=== PATIENT | male | born 1935 | race Caucasian/White ===

== ENCOUNTER 2020-05-19 13:30 | Emergency (ER) | payer OTHER ==
--- OUTSIDE RECORDS SUMMARY | 2020-05-19 13:32 | XMS REPORT | Clinical Summary ---
:1935 Author Organization [facility] Address [address] [place] [address] Care Team Providers Name Role Phone Michael Jurado DO Primary Care Provider Allergies Active Allergy Reactions Severity Noted Date Comments Clarithromycin 07/10/2016 Streptomycin Itching 06/29/2016 Medications Medication Sig Dispensed Refills Start Date End Date Status hydroCHLOROthiazide Take 25 mg 0 02/13/2020 Active (HYDRODIURIL) 25 MG by mouth tablet daily. LUMIGAN 0.01 % PUT ONE DROP 12 04/21/2016 02/25/20 D iscontinued ophthalmic drops INTO EACH 20 EYE AT BEDTIME ibuprofen (ADVIL,MOTRIN) Take 200 mg 0 07/06 Discontinued 200 MG tablet by mouth 20 every 6 (six) hours as needed for mild pain or fever. amoxicillin-pot Take 1 0 02/25/20 Disc ontinued clavulanate (AUGMENTIN) tablet by 20 875-125 mg per tablet mouth 2 (two) times a day. 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 Renal failure 07/10/2016 Urinary tract infection 07/10/2016 Abscess, pharyngeal 06/30/2016 Abscess 06/30/2016 Disorder of kidney and ureter 07/03/2012 Essential hypertension 07/03/2012 Hyperlipidemia 07/03/2012 Hyperplasia of prostate 07/03/2012 Encounters Date Type Specialty Care Team Description 02/26/2020 Orders Only Family Medicine Marily Jurado E., DO 02/25/2020 Hospital Encounter Radiology Marily Jurado Pain o f right hip joint E., DO 02/25/2020 Office Visit Family Medicine Marily Jurado Adult gen eral medical exam (Primary Dx); E., DO Essential hyper tension; Pain of right h ip joint; Urinary inconti nence, unspecified type; Memory loss; Mixed hyperlipi demia; Ataxia 02/25/2020 Travel 02/20/2020 Travel after 05/19/2019 Social History Tobacco Use Types Packs/Day Years Used Date Former Smoker Cigarettes 0.5 48 Quit: 12/2016 Smokeless Tobacco: Never Used Alcohol Use Drinks/Week oz/Week Comments No 0 Cans of beer 0.0 Sex Assigned at Date Recorded Not on file Job Start Date Occupation Industry Not on file Not on file Not on file Travel History Travel Start Travel End No recent travel history available. Last Filed Vital Signs Vital Sign Reading Time Taken Comments Blood Pressure 121/70 02/25/2020 9:27 AM CDT Pulse - - Temperature 37.1 C (98.7 F) 02/25/2020 9:27 AM CDT Respiratory Rate - - Oxygen Saturation - - Inhaled Oxygen Concentration - - Weight - - Height 185.4 cm (6' 1") 02/25/2020 9:27 AM CDT Body Mass Index - - Plan of Treatment Health Maintenance Due Date Last Done Comments SHINGLES VACCINES (#1) 11/28/1987 65+ PNEUMOCOCCAL VACCINE (1 of 2 - PCV13) 2002 INFLUENZA VACCINE 06/17/2020 Implants Implanted Type [employer] Device Shelf Model / Identifier Expiration Serial / Date Lot Catheter Uretl 5fr 70cm Opn-End Flx-Tp Std - [id number] Cardiovas cular Left: SOHAM [id number] / Implanted: Qty: 1 on 02/08/2017 by Benedict Diaz MD at [facility] Implants Ureter, UROLOGICAL / [place] Stent Uretl Unvrsa Reprcsd 6fr 26cm Hydrphlc Ctng - [id number] Ur ological Left: SOHAM 12/02/2019 [id number] / Implanted: 02/08/2017 at [facility] (Quantity not on file ) Implants or Sets Ureter, UROLOGICAL / [place] [id number] Procedures Procedure Name Priority Date/Time Associated Diagnosis Comme nts CBC WITH PLATELET AND Routine 02/26/2020 7:46 Re sults for this DIFFERENTIAL AM CDT procedure are i n the results section. COMPREHENSIVE Routine 02/26/2020 7:46 Results fo r this METABOLIC PANEL AM CDT procedure ar e in the results section. LIPID PANEL Routine 02/26/2020 7:46 Results for this AM CDT procedure are i n the results section. XR HIP 2-3 VIEWS RIGHT Routine 02/25/2020 11:21 Pain of right hip Results for this AM CDT joint procedure are i n the results section. ECG 12-LEAD Routine 02/25/2020 10:00 Essential Results for this AM CDT hypertension procedure are i n the results section. after 05/19/2019 Results CBC with platelet and differential (02/26/2020 7:46 AM CDT) WBC 12.5 (H) 3.8 - 10.8 [facility] Thousand/uL [place] RBC 5.27 4.20 - 5.80 [facility] Million/uL [place] HGB 17.7 (H) 13.2 - 17.1 [facility] g/dL [place] HCT 52.2 (H) 38.5 - 50.0 [facility] % [place] MCV 99.1 80.0 - 100.0 [facility] MCH 33.6 (H) 27.0 - 33.0 [facility] pg [place] MCHC 33.9 32.0 - 36.0 [facility] g/dL [place] RDW 12.2 11.0 - 15.0 [facility] % [place] Platelet count 353 140 - 400 [facility] Thousand/uL [place] MPV 10.1 7.5 - 12.5 [facility] Neutrophils, 8,713 (H) 1,500 - [facility] absolute 7,800 [place] cells/uL Lymphocytes, 2,588 850 - 3,900 [facility] absolute cells/uL [place] Monocytes, absolute 1,000 (H) 200 - 950 [facility] cells/uL [place] Eosinophils, 150 15 - 500 [facility] absolute cells/uL [place] Basophils, absolute 50 0 - 200 [facility] cells/uL [place] Neutrophils 69.7 % [facility] [place] Lymphocytes 20.7 % [facility] [place] Monocytes 8.0 % [facility] [place] Eosinophils 1.2 % [facility] [place] Basophils + RC 0.4 % [facility] Comment: [place] NO COLLECTION DATE RECEIVED. WE HAVE USED THE DATE THE SPECIMEN WAS RECEIVED BY THIS LABORATORY THE COLLECTION DATE. IF THIS IS INCORRECT, PLEASE CONTACT CLIENT SERVICES. PHONE NUMBER: [phone] Specimen Narrative Performed At FASTING: YES [facility] Comment Performing Organization Information: Site ID: [id number] Name[facility] Address: [address] [place] [id number] Director: Kaleb Ortiz Performing Organization Address [facility] Phone Number [employer] [place] [address] Lipid panel (02/26/2020 7:46 AM CDT) [facility] Signature Cholesterol, total 156 <200 mg/dL [facility] [place] HDL cholesterol 35 (L) > OR = 40 [facility] mg/dL [place] Triglycerides 169 (H) <150 mg/dL [facility] [place] LDL cholesterol 94 mg/dL (calc) [facility] calculated Comment: [place] Reference range: <100 Desirable range <100 mg/dL for primary prevention; <70 mg/dL for patients with CHD or diabetic patients with > or = 2 CHD risk factors. LDL-C is now calculated using the Waldo-Bhumika calculation, which is a validated novel method providi ng better accuracy than the Friedewald equation in the estimation of LDL-C. Waldo SS et al. AEBBE. 2013;310(19): 4509-7282 (http://education.[employer]/faq/DKL862) Cholesterol/HDL 4.5 <5.0 (calc) [facility] Non-HDL cholesterol 121 <130 mg/dL [facility] Comment: (calc) ONEAL For patients with diabetes plus 1 major ASCVD risk factor, treating to a non-HDL-C goal of <100 mg/dL (LDL-C of <70 mg/dL) is considered a therapeutic option. Specimen Narrative Performed At FASTING: YES [facility] Comment Performing Organization Information: Site ID: [id number] Name: [facility] Address: [address] [place] [id number] Director: Kaleb Ortiz Performing Organization Address [facility]/Zipcode Phone Number [employer] [place] [phone] Comprehensive metabolic panel (02/26/2020 7:46 AM CDT) Glucose 112 (H) 65 - 99 [facility] Comment: mg/dL [place] Fasting reference interval For someone without known diabetes, a glucose value between 100 and 125 mg/dL is consistent with prediabetes and should be confirmed with a follow-up test. BUN 22 7 - 25 mg/dL [facility] [place] Creatinine 1.13 (H) 0.70 - 1.11 [facility] Comment: mg/dL [place] For patients >49 years of age, the reference limit for Creatinine is approximately 13% higher for people identified as -[place]. EGFR Non-Afr. 60 > OR = 60 [facility] [place] mL/min/1.73m [place] 2 EGFR 70 > OR = 60 [facility] [place] mL/min/1.73m [place] 2 BUN/creatinine 19 6 - 22 [facility] ratio (calc) [place] Sodium 141 135 - 146 [facility] mmol/L [place] Potassium 4.2 3.5 - 5.3 [facility] mmol/L [place] Chloride 101 98 - 110 [facility] mmol/L [place] CO2 28 20 - 32 [facility] mmol/L [place] Calcium 9.6 8.6 - 10.3 [facility] mg/dL [place] Protein 6.8 6.1 - 8.1 [facility] g/dL [place] Albumin, S 3.8 3.6 - 5.1 [facility] g/dL [place] Globulin, total 3.0 1.9 - 3.7 [facility] g/dL (calc) [place] Albumin/globulin 1.3 1.0 - 2.5 [facility] ratio (calc) [place] Total bilirubin 0.8 0.2 - 1.2 [facility] mg/dL [place] Alkaline 74 35 - 144 U/L [facility] phosphatase [place] AST 14 10 - 35 U/L [facility] [place] ALT 14 9 - 46 U/L [facility] [place] Specimen Narrative Performed At FASTING: YES [facility] Comment Performing Organization Information: Site ID: [id number] Name: [facility] Address: [address] [place] [address] Director: Kaleb Ortiz Performing Organization Address City/State/Zipcode Phone Number DANNI PIERCE [place] [address] [place] [address] XR Hip 2-3 View Right (02/25/2020 11:21 AM CDT) Specimen Narrative Performed At Examination: XR HIP 2-3 VIEWS RIGHT [facility] Clinical history: M25.551 Pain in right hip, right hip pain after fall Comparison: None Impression: 1. There is no fracture or acute osseous pathology. 2. The joint spaces a relatively well-preserved and sy mmetrical with mild joint space loss reflecting mild to moderate oste oarthritis which is not advanced relative to the patient' s age. [facility]-[id number] Procedure Note Hm Interface, Radiology Results Incoming - 02/25/2020 1:12 PM CDT Examination: XR HIP 2-3 VIEWS RIGHT Clinical history: M25.551 Pain in right hip, right hip pain after fall Comparison: None Impression: 1. There is no fracture or acute osseous pathology. 2. The joint spaces a relatively well-pr eserved and symmetrical with mild joint space loss reflecting mild to moderate osteoarthritis which is not advanced relative to the patient's age. [facility]-[id number] Performing Organization Address City/[facility] Phone Number [facility] [address] [place] [address] ECG 12 lead (02/25/2020 10:00 AM CDT) Pathologist Sig nature Ventricular rate 87 [facility] Atrial rate 87 [facility] PA interval 140 [facility] QRSD interval 88 [facility] QT interval 398 [facility] QTC interval 478 [facility] P axis 1 83 [facility] QRS axis 1 64 [facility] T wave axis 83 [facility] EKG impression Sinus rhythm with marked sin us arrhythmia with occasional premature ventricular complexes-Nonspecific ST and T wave abnormality-Abnormal ECG-In automated comparison with ECG of -JAN-2017 15:00,-Border [facility] MUSE line criteria for Inferior infarct are no longer present-Nonspecific T wave a bnormality now evident in Lateral leads- Specimen Narrative Performed At This result has an attachment that is no t available. Performing Organization Address City/State/Zipcode Phone Number [facility] [employer] [address] [place] [address] after 05/19/2019 Insurance Payer Benefit Plan / Subscriber ID Effective Phone Address T e Group Dates MEDICARE MEDICARE PART xxxxxxxxxxx 2002-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
--- OUTSIDE RECORDS SUMMARY | 2020-05-19 13:32 | XMS REPORT | Continuity of Care Document ---
:1935 Author Organization [facility] t Address [address] [place] [address] Dr. Briones [address] [place] [address] Care Team Providers Name Role Phone Michael Jurado DO Primary Care Physician Michael Jurado DO Attending Clinician Payers Payer Name Policy Policy Number Effective Expiration Source Type Date Date MEDICAREMEDICARE PART xxxxxxxxxxx 2002 Levy qeuzada A AND 00:00:00 Buddhist Bxxxxxxxxxxx2002- [place], [place] xxxxxx-xx 2009 Edi hunter OF 00:00:00 Buddhist OMAHAxxxxxx-xx 0-PresentCommercial Problems Condition Condition Condition Status Onset Resolution Last Treating Co mments Source Name Details Category Date Date Treatment Clinician Date Left Left Disease Active [place] ureteral ureteral 5-25 Method i calculus calculus 00:00: st 00 Bandemia Bandemia Disease Active [place] 5-17 Methodi 00:00: st 00 Fever Fever Disease Active [place] 5-16 Methodi 00:00: st 00 Benign Benign Disease Active 2015-09 [place] essential essential 0-24 Meth eunice hypertensi hypertensi 00:00: st on on 00 Cataract Cataract Disease Active 2015-09 [place] 0-24 Methodi 00:00: st 00 Decreased Decreased Disease Active 2015-09 Edi ston hearing hearing 0-24 Methodi 00:00: st 00 Dehydratio Dehydratio Disease Active 2015-09 [place] n 0-24 Methodi 00:00: st 00 Diarrhea Diarrhea Disease Active 2015-09 [place] of of 0-24 Methodi presumed presumed 00:00: st infectious infectious 00 origin origin Elevated Elevated Disease Active 2015-09 [place] blood blood 0-24 Methodi pressure pressure 00:00: st 00 Gastritis Gastritis Disease Active 2015-09 Edi ston 0-24 Methodi 00:00: st 00 Hyperglyce Hyperglyce Disease Active 2015-09 H [place] 0-24 Methodi 00:00: st 00 Leukocytos Leukocytos Disease Active 2015-09 H bar[place] is is 0-24 Methodi 00:00: st 00 Multiple-t Multiple-t Disease Active 2015-09 H [place] ype ype 0-24 Methodi hyperlipid hyperlipid 00:00: st emia emia 00 Renal Renal Disease Active 2015-09 [place] failure failure 0-24 Methodi 00:00: st 00 Urinary Urinary Disease Active 2015-09 [place] tract tract 0-24 Methodi infection infection 00:00: st 00 Abscess, Abscess, Disease Active 2015-09 [place] pharyngeal pharyngeal 0-14 Me thodi 00:00: st 00 Abscess Abscess Disease Active 2015-09 [place] 0-14 Methodi 00:00: st 00 Disorder Disorder Disease Active 2011-09 [place] of kidney of kidney 0-17 Meth eunice and ureter and ureter 00:00: st 00 Essential Essential Disease Active 2011-09 Edi ston hypertensi hypertensi 0-17 Me thodi on on 00:00: st 00 Hyperlipid Hyperlipid Disease Active 2011-09 H [place] emia emia 0-17 Methodi 00:00: st 00 Hyperplasi Hyperplasi Disease Active 2011-09 H [place] a of a of 0-17 Methodi prostate prostate 00:00: st 00 Allergies, Adverse Reactions, Alerts Allergy Allergy Status Severity Reaction(s) Onset Inactive Treating Comm ents Source Name Type Date Date Clinician Tesfaye Watson Active 2015-09 [place] omycin ty to 0-24 Methodi adverse 00:00: st reaction 00 s to drug Streptom Propensi Active Itching 2015-09 [place] ycin ty to 0-13 Methodi adverse 00:00: st reaction 00 s to drug Social History Social Habit Start Date Stop Date Quantity Comments Source History of tobacco Current smoker Levy quezada Buddhist use Sex Assigned At [facility] ethodist Cigarettes smoked 2020-02-25 2020-02-25 [place] Buddhist current (pack per 00:00:00 00:00:00 day) - Reported Cigarette 2020-02-25 2020-02-25 Pato Fisher ist pack-years 00:00:00 00:00:00 Alcohol intake 2020-02-25 2020-02-25 Current [facility] thodist 00:00:00 00:00:00 non-drinker of alcohol (finding) Smoking Status Start Date Stop Date Source Former smoker 2020-02-25 00:00:00 2020-02-25 00:00:00 Pato Fisherist Medications Ordered Filled Start Stop Current Ordering Indication Dosage Frequency Signature Comments Components Source Medication Medication Date Date Medication? Clinician (SIG) Name Name ibuprofen 2019- No 200mg Q6H Take 200 Ho damien (ADVIL,MOTR 6-10 06-10 mg by Method i IN) 200 MG 09:31: 00:[address] tablet 11 :00 every 6 (six) hours as needed for mild pain or fever. amoxicillin 2019- No 1{tbl} Q.5D Take 1 [place] -pot 6-10 06-10 tablet by Methodi clavulanate 09:31: 00:[address] (AUGMENTIN) 11 :00 (two) 875-125 mg times a per tablet day. hydroCHLORO Yes 25mg QD Take 25 mg [place] thiazide 5-29 by mouth Methodi (HYDRODIURI 00:00: daily. st L) 25 MG 00 tablet LUMIGAN No PUT ONE [place] 0.01 % 8-05 06-10 DROP INTO Methodi ophthalmic 00:00: 00:[address] drops 00 :00 AT BEDTIME Vital Signs Vital Name Observation Time Observation Value Comments Source Systolic blood 2020-02-25 09:27:00 121 mm[Hg] [place] Buddhist pressure Diastolic blood 2020-02-25 09:27:00 70 mm[Hg] [place] Buddhist pressure Body temperature 2020-02-25 09:27:00 37.06 Karla [place] Buddhist Body height 2020-02-25 09:27:00 185.4 cm Pato Torres Procedures Procedure Date / Time Performed Performing Clinician [facility] e LIPID PANEL 2020-02-26 07:46:00 Bam Jurado ethodist COMPREHENSIVE METABOLIC 2020-02-26 07:46:00 Bam Jurado PANEL CBC WITH PLATELET AND 2020-02-26 07:46:00 Bam Jurado DIFFERENTIAL XR HIP 2-3 VIEWS RIGHT 2020-02-25 11:21:53 Bam Jurado [place] Buddhist ECG 12-LEAD 2020-02-25 10:00:02 Bam Jurado ethodi Plan of Care Planned Activity Planned Date Details Comments Source Future Scheduled 2020-06-17 INFLUENZA VACCINE [facility] rhys Buddhist Test 00:00:00 [code = INFLUENZA VACCINE] Future Scheduled 2002 65+ PNEUMOCOCCAL [place] Buddhist Test 00:00:00 VACCINE (1 of 2 - PCV13) [code = 65+ PNEUMOCOCCAL VACCINE (1 of 2 - PCV13)] Future Scheduled 1987-11-28 SHINGLES VACCINES (#1) H [place] Buddhist Test 00:00:00 [code = SHINGLES VACCINES (#1)] Encounters Start End Encounter Admission Attending Care Care Encounter Source Date/Time Date/Time Type Type Clinicians Facility Department ID 2020-02-25 2020-02-25 [id number] [place] 00:00:00 00:00:00 BAM [address] 2020-02-25 2020-02-25 Outpatient [facility] [id number] [place] 00:00:00 00:00:00 BAM [address] Results Test Description Test Time Test Comments Results Result Comments Source Comprehensive metabolic panel 2020-02-26 07:46:00 Test Item Value Reference Range Interpretation Comme nts Glucose (test code = 112 mg/dL 65-99 H Fasting 2345-7) reference inter madelin For someone without known diabetes, a glu cose valuebetween 10 0 and 125 mg/dL is consis tent withprediabetes and should be confi rmed with afollow-up test . BUN (test code = 22 mg/dL 7-25 3094-0) Creatinine (test code = 1.13 mg/dL 0.7-1.11 H For patients >49 years of 2160-0) age, the refere nce limitfor Creati nine is approximately 1 3% higher for peopleident ified as -Kirstin n. EGFR Non-Afr. Niuean 60 > OR = 60 (test code = 2775) mL/min/1.73m2 EGFR 70 > OR = 60 (test code = 04552-3) mL/min/1.73m2 BUN/creatinine ratio 19 6- 22 (calc) (test code = 3097-3) Sodium (test code = 141 mmol/L 840-770 4987-2) Potassium (test code = 4.2 mmol/L 3.5-5.3 2823-3) Chloride (test code = 101 mmol/L 98-110 2074-0) CO2 (test code = 28 mmol/L 20-32 2027-9) Calcium (test code = 9.6 mg/dL 8.6-10.3 83241-0) Protein (test code = 6.8 g/dL 6.1-8.1 2885-2) Albumin, S (test code = 3.8 g/dL 3.6-5.1 1751-7) Globulin, total (test 3.0 1.9- 3.7 g/dL code = 39389-7) (calc) Albumin/globulin ratio 1.3 1.0- 2.5 (test code = 1759-0) (calc) Total bilirubin (test 0.8 mg/dL 0.2-1.2 code = 1974-2) Alkaline phosphatase 74 U/L 35-144 (test code = 6768-6) AST (test code = 14 U/L 10-35 1920-8) ALT (test code = 14 U/L 9-46 1742-6) DAKOTA (test code = DAKOTA) FASTING: YES RAC (test code = RAC) Performing Organization Information: Site ID: RGA Name: [facility] Address: [address] [place] [id number] Director: Kaleb Ortiz Lab Interpretation Abnormal (test code = 75004-7) [place] [facility] [id number] 07:46:00 Test Item Value Reference Range Interpretation Comments Cholesterol, total 156 mg/dL <200 (test code = 2092-3) HDL cholesterol 35 mg/dL > OR = 40 L (test code = 2084-9) Triglycerides (test 169 mg/dL <150 H code = 2571-8) LDL cholesterol 94 mg/dL (calc) Reference ra nge: calculated (test <100 Desira ble code = 31531-9) range <100 m g/dL for primary prevention; <7 0 mg/dL for patients with C HD or diabetic patients with > or = 2 CHD risk factors. LDL-C is now calculated using the Brianne calculation, which is a validated novel method providin g better accuracy than the Friedewald equation in the estimation of LDL-C. Waldo S S et al. ABEBE. 2013;310(19): 5514-4072 (http://educati on .Mobivox .com/faq/QKD954 ) Cholesterol/HDL 4.5 <5.0 (calc) ratio (test code = 9830-1) Non-HDL cholesterol 121 <130 mg/dL For ross ents with (test code = (calc) diabetes plus 1 86814-6) major ASCVD ris k factor, treatin g to a non-HDL-C goal of <100 mg/dL (LDL-C of <70 mg/dL) is considered a therapeutic option. DAKOTA (test code = FASTING: YES DAKOTA) RAC (test code = Performing RAC) Organization Information: Site ID: RGA Name: [facility] Lab Address: [address] [place] [id number] Director: Kaleb Ortiz Lab Interpretation Abnormal (test code = 85532-6) [facility] with platelet and [id number] 07:46:00 Test Item Value Reference Interpretation Comments Range WBC (test code = 12.5 3.8- 10.8 H 6690-2) Thousand/uL RBC (test code = 5.27 4.20- 5.80 789-8) Million/uL HGB (test code = 17.7 g/dL 13.2-17.1 H 718-7) HCT (test code = 52.2 % 38.5-50 H 4544-3) MCV (test code = 99.1 fL 80-100 787-2) MCH (test code = 33.6 pg 27-33 H 785-6) MCHC (test code = 33.9 g/dL 32-36 786-4) RDW (test code = 12.2 % 11-15 788-0) Platelet count (test 353 140- 400 code = 777-3) Thousand/uL MPV (test code = 10.1 fL 7.5-12.5 776-5) Neutrophils, 8713 1,500 - 7,800 H absolute (test code cells/uL = 751-8) Lymphocytes, 2588 850- 3,900 absolute (test code cells/uL = 731-0) Monocytes, absolute 1000 200- 950 H (test code = 742-7) cells/uL Eosinophils, 150 15- 500 absolute (test code cells/uL = 711-2) Basophils, absolute 50 0- 200 (test code = 704-7) cells/uL Neutrophils (test 69.7 % code = 770-8) Lymphocytes (test 20.7 % code = 736-9) Monocytes (test code 8.0 % = 5905-5) Eosinophils (test 1.2 % code = 713-8) Basophils + RC (test 0.4 % NO GERRI ECTION DATE code = 706-2) RECEIVED. WE H AVE USEDTHE DATE TH E SPECIMEN WAS [facility] THE COLLECTION DATE. IF THISIS INCORRECT, PLEA SE CONTACT CLIENT SERVICES.PHONE NUMBER: [phone] DAKOTA (test code = FASTING: YES DAKOTA) RAC (test code = Performing RAC) Organization Information: Site ID: RGA Name: [facility] Address: [address] [place], [place] [id number] Director: Kaleb Ortiz Lab Interpretation Abnormal (test code = 53860-3) [facility] [id number] 13:09:37Hm Interface, Radiology Results - 02/25/2020 1:12 PM CDTExamination: XR HIP 2-3 VIEWS RIGHT Clinical history: M25.551 Pain in right hip, right hip pain after fallComparison: NoneImpression:1. There is no fracture or acute osseous pathology.2. The joint spaces a relatively well-preserved and symmetrical with mild joint space loss reflecting mild to moderate osteoarthritis which is not advanced relative to the patient's age. [facility]-[id number] [facility] 12 [id number] 10:03:39 Test Item Value Reference Range Interpretation Comments Ventricular rate (test 87 code = 253) Atrial rate (test code 87 = 255) AK interval (test code 140 = 266) QRSD interval (test 88 code = 260) QT interval (test code 398 = 264) QTC interval (test code 478 = 265) P axis 1 (test code = 83 267) QRS axis 1 (test code = 64 268) T wave axis (test code 83 = 270) EKG impression (test Sinus rhythm with code = 273) marked sinus arrhythmia with occasional premature ventricular complexes-Nonspecific ST and T wave abnormality-Abnormal ECG-In automated comparison with ECG of 30-JAN-2017 15:00,-Borderline criteria for Inferior infarct are no longer present-Nonspecific T wave abnormality now evident in Lateral leads- Pato Torres
--- NOTE | 2020-05-19 14:50 | RAD REPORT ---
EXAM DESCRIPTION: RAD - Hip Left 2 View - 05/19/2020 2:43 pm CLINICAL HISTORY: Left hip pain status post injury FINDINGS: Mildly displaced subcapital/proximal transcervical femoral fracture No dislocation Osteoporosis
[2020-05-19 15:57] LABS: Absolute Lymphocytes (CBC) 1.1 K/uL (0.7-4.9); Basophils % 0.5 % (0-1.3); Hematocrit 48.4 % (39.6-49.0); Lymphocytes % 7.3 % (15.3-44.8); MPV 8.2 fL (7.6-11.3)
[2020-05-19 16:06] LABS: Protime INR 1.02
[2020-05-19 16:07] LABS: Potassium 3.6 mmol/L (3.5-5.1)
[2020-05-19 16:21] LABS: Blood Morphology Comment NOT SEEN (NOT SEEN); Platelet Estimate ADEQ; White Blood Cell Scan OK (OK)
--- NOTE | 2020-05-19 16:40 | EDPHYS ---
Physician Documentation [facility] Name: Anatoliy French Age: 84 yrs Sex: Male : 1935 Arrival Date: 05/19/2020 Time: 13:35 Bed 8 Private MD: ED Physician Goyo Natarajan HPI: 05/19 14:40 This 84 yrs old Male presents to ER via Wheelchair with complaints of Fall jr8 Injury. 14:40 Details of fall: The patient fell from an upright position, while standing. Onset: The jr8 symptoms/episode began/occurred acutely, today. Associated injuries: The patient sustained left leg. Severity of symptoms: At their worst the symptoms were mild, in the emergency department the symptoms are unchanged. The patient has not experienced similar symptoms in the past. The patient has not recently seen a physician. Patient tripped at home in shower causing him to land on left hip. Has been able to bear weight since then but with pain . Historical: - Allergies: 13:43 PENICILLINS; ll1 - PMHx: 13:43 Hypertension; Diabetes - IDDM; ll1 - PSHx: 13:43 suprapubic cath; chest tube-infection; ll1 - Immunization history:: Flu vaccine is not up to date. - Social history:: Smoking status: Patient reports the use of cigarette tobacco products, denies chronic smoking, but will smoke occasionally, smokes one-half pack cigarettes per day, Patient/guardian denies using alcohol, street drugs. ROS: 14:40 Eyes: Negative for injury, pain, redness, and discharge, ENT: Negative for injury, jr8 pain, and discharge, Neck: Negative for injury, pain, and swelling, Cardiovascular: Negative for chest pain, palpitations, and edema, Respiratory: Negative for shortness of breath, cough, wheezing, and pleuritic chest pain, Abdomen/GI: Negative for abdominal pain, nausea, vomiting, diarrhea, and constipation, Back: Negative for injury and pain, Skin: Negative for injury, rash, and discoloration, Neuro: Negative for headache, weakness, numbness, tingling, and seizure. 14:40 MS/extremity: Positive for pain, tenderness. Exam: 14:40 Eyes: Pupils equal round and reactive to light, extra-ocular motions intact. Lids and jr8 lashes normal. Conjunctiva and sclera are non-icteric and not injected. Cornea within normal limits. Periorbital areas with no swelling, redness, or edema. ENT: Nares patent. No nasal discharge, no septal abnormalities noted. Tympanic membranes are normal and external auditory canals are clear. Oropharynx with no redness, swelling, or masses, exudates, or evidence of obstruction, uvula midline. Mucous membranes moist. Neck: Trachea midline, no thyromegaly or masses palpated, and no cervical lymphadenopathy. Supple, full range of motion without nuchal rigidity, or vertebral point tenderness. No Meningismus. Cardiovascular: Regular rate and rhythm with a normal S1 and S2. No gallops, murmurs, or rubs. Normal PMI, no JVD. No pulse deficits. Respiratory: Lungs have equal breath sounds bilaterally, clear to auscultation and percussion. No rales, rhonchi or wheezes noted. No increased work of breathing, no retractions or nasal flaring. Abdomen/GI: Soft, non-tender, with normal bowel sounds. No distension or tympany. No guarding or rebound. No evidence of tenderness throughout. Back: No spinal tenderness. No costovertebral tenderness. Full range of motion. Skin: Warm, dry with normal turgor. Normal color with no rashes, no lesions, and no evidence of cellulitis. Neuro: Awake and alert, GCS 15, oriented to person, place, time, and situation. Cranial nerves II-XII grossly intact. Motor strength 5/5 in all extremities. Sensory grossly intact. Cerebellar exam normal. Normal gait. 14:40 Musculoskeletal/extremity: Extremities: grossly normal except: noted in the left leg: pain, tenderness, left greater trochanter of hip, ROM: intact in all extremities, full active range of motion, full passive range of motion, limited active range of motion due to pain, limited passive range of motion due to pain, Circulation is intact in all extremities. Sensation intact. Vital Signs: 13:44 BP 120 / 78; Pulse 79; Resp 18; Pulse Ox 100% ; Weight 64.86 kg; Pain 5/10; ll1 15:44 BP 161 / 107; Pulse 98; Resp 18; Pulse Ox 96% on R/A; jr10 17:58 BP 149 / 100; Pulse 85; Resp 20; Pulse Ox 95% on R/A; jr10 Lamont Coma Score: 14:24 Eye Response: spontaneous(4). Verbal Response: oriented(5). Motor Response: obeys jr10 commands(6). Total: 15. Trauma Score (Adult): 14:24 Eye Response: spontaneous(1); Verbal Response: oriented(1); Motor Response: obeys jr10 commands(2); Systolic BP: > 89 mm Hg(4); Respiratory Rate: 10 to 29 per min(4); Landen Score: 15; Trauma Score: 12 MDM: 13:57 Patient medically screened. jr8 16:38 Data reviewed: vital signs, nurses notes, lab test result(s), radiologic studies, plain jr8 films. Data interpreted: Pulse oximetry: on room air is 96 %. Interpretation: normal. Counseling: I had a detailed discussion with the patient and/or guardian regarding: the historical points, exam findings, and any diagnostic results supporting the discharge/admit diagnosis, lab results, radiology results, the need to transfer to another facility, [facility] does not immediately have the required specialist. 05/19 14:54 Order name: CBC with Diff; Complete Time: 16:28 [facility] 05/19 14:54 Order name: Basic Metabolic Panel; Complete Time: 16:14 [facility] 05/19 13:56 Order name: XRAY Hip LEFT 2 view; Complete Time: 14:52 [facility] 05/19 14:54 Order name: Protime (+inr); Complete Time: 16:14 [facility] 05/19 14:54 Order name: Ptt, Activated; Complete Time: 16:14 [facility] 05/19 16:21 Order name: CBC Smear Scan; Complete Time: 16:28 [facility] 05/19 14:54 Order name: IV; Complete Time: 15:27 [facility] 05/19 16:40 Order name: EKG - Nurse/Tech; Complete Time: 17:05 [facility] 05/19 17:05 Order name: EKG; Complete Time: 17:06 em1 Administered Medications: No medications were administered Disposition: 05/20 17:07 Co-signature as Attending Physician, Goyo Natarajan MD I agree with the assessment and kdr plan of care. Disposition: 05/19/20 16:40 [facility] ordered to [facility]. Diagnosis is Acute subcapital left hip fracture . - Reason for transfer: Higher level of care. - Accepting physician is Dr. Hickman. - Condition is Stable. - Problem is new. - Symptoms are unchanged. Signatures: Dispatcher [employer] EDMS Goyo Natarajan MD MD kdr Roszak, Josh, PA PA jr8 Leslie House, RN RN ll1 Rupa Munoz RN RN jr10 Corrections: (The following items were deleted from the chart) 05/19 19:23 16:40 05/19/2020 16:40 Transfer ordered to [facility]. Diagnosis is Acute jr10 subcapital left hip fracture . Reason for transfer: Higher level of care. Accepting physician is Dr. Hickman. Condition is Stable. Problem is new. Symptoms are unchanged. jr8
--- NOTE | 2020-05-19 16:40 | ER ---
Nurse's Notes [facility] Name: Anaotliy French Age: 84 yrs Sex: Male : 1935 Arrival Date: 05/19/2020 Time: 13:35 Bed 8 Private MD: Diagnosis: Acute subcapital left hip fracture Presentation: 05/19 13:44 Chief complaint: Patient states: Slipped when getting out of the shower this morning. ll1 Landed on left side. Reports left hip tenderness since. Skin tear left elbow. No LOC. Coronavirus screen: Client denies travel out of the [place] in the last 14 days. At this time, the client does not indicate any symptoms associated with coronavirus-19. Ebola Screen: Patient denies travel to an Ebola-affected area in the 21 days before illness onset. Initial Sepsis Screen: Does the patient meet any 2 criteria? No. Patient's initial sepsis screen is negative. Risk Assessment: Do you want to hurt yourself or someone else? Patient reports no desire to harm self or others. Onset of symptoms was May 19, 2020. 13:44 Method Of Arrival: Wheelchair ll1 13:44 Acuity: JUANCHO 3 ll1 13:45 Care prior to arrival: Medication(s) given: Motrin. Mechanism of Injury: Fall. jr10 Triage Assessment: 13:52 General: Appears comfortable, Behavior is calm, cooperative. Pain: Complains of pain in ll1 L hip Quality of pain is described as aching, Pain began 4 hours ago. Is intermittent. Derm: skin tear L elbow Reports skin tear L elbow. Musculoskeletal: Circulation, motion, and sensation intact. Capillary refill < 3 seconds, Range of motion: intact in all extremities, Tenderness present in L hip Reports pain in L hip. Injury Description: Bruise. Historical: - Allergies: 13:43 PENICILLINS; ll1 - PMHx: 13:43 Hypertension; Diabetes - IDDM; ll1 - PSHx: 13:43 suprapubic cath; chest tube-infection; ll1 - Immunization history:: Flu vaccine is not up to date. - Social history:: Smoking status: Patient reports the use of cigarette tobacco products, denies chronic smoking, but will smoke occasionally, smokes one-half pack cigarettes per day, Patient/guardian denies using alcohol, street drugs. Screenin:26 Abuse screen: Denies threats or abuse. Denies injuries from another. Tuberculosis jr10 screening: No symptoms or risk factors identified. Primary Survey: 14:24 NO uncontrolled hemorrhage observed. Breathing/Chest: Respiratory pattern: regular, jr10 Respiratory effort: spontaneous, unlabored, Breath sounds: clear, bilaterally. Chest inspection: symmetrical rise and fall of the chest. Circulation: Pulses: palpable right posterior tibial artery, right dorsalis pedis artery, left posterior tibial artery and left dorsalis pedis artery. Disability Alert. Secondary Survey: 14:24 Musculoskeletal: Circulation, motion, and sensation intact. Capillary refill < 3 jr10 seconds, Range of motion: intact in all extremities, Swelling absent. Assessment: 13:45 General: Appears in no apparent distress. Behavior is appropriate for age. Pain: jr10 Complains of pain in left hip Pain does not radiate. Pain began this morning. Neuro: No deficits noted. Level of Consciousness is awake, alert, obeys commands, Oriented to person, place, Appropriate for age. EENT: No deficits noted. No signs and/or symptoms were reported regarding the EENT system. Cardiovascular: No deficits noted. Respiratory: Reports cough that is dry, Airway is patent Respiratory effort is even, unlabored, Respiratory pattern is regular, symmetrical, Denies shortness of breath. GI: No deficits noted. No signs and/or symptoms were reported involving the gastrointestinal system. : suprapubic catheter in place to gravity drainage. Derm: Skin has skin tears on to left elbow post fall this morning. Musculoskeletal: No deficits noted. No signs and/or symptoms reported regarding the musculoskeletal system. 13:45 Musculoskeletal: No deficits noted. Reports pain in left hip since this morning; slip jr10 and fall getting out of shower; per daughter pt is normally ambulatory with walker, has been ambulatory post fall with walker and no additional assistance. no swelling/deformity/shortening or rotation of affected extremity noted. 14:29 Reassessment: xray at bedside. jr10 18:10 Reassessment: Patient and/or family updated on plan of care and expected duration. Pain jr10 level reassessed. Patient is alert, oriented x 3, equal unlabored respirations, skin warm/dry/pink. Vital Signs: 13:44 BP 120 / 78; Pulse 79; Resp 18; Pulse Ox 100% ; Weight 64.86 kg; Pain 5/10; ll1 15:44 BP 161 / 107; Pulse 98; Resp 18; Pulse Ox 96% on R/A; jr10 17:58 BP 149 / 100; Pulse 85; Resp 20; Pulse Ox 95% on R/A; jr10 [place] Coma Score: 14:24 Eye Response: spontaneous(4). Verbal Response: oriented(5). Motor Response: obeys jr10 commands(6). Total: 15. Trauma Score (Adult): 14:24 Eye Response: spontaneous(1); Verbal Response: oriented(1); Motor Response: obeys jr10 commands(2); Systolic BP: > 89 mm Hg(4); Respiratory Rate: 10 to 29 per min(4); [place] Score: 15; Trauma Score: 12 ED Course: 13:35 Patient arrived in ED. mr 13:44 Arm band placed on Patient placed in an exam room, on a stretcher. ll1 13:46 Triage completed. ll1 13:50 Rupa Munoz, RN is Primary Nurse. jr10 13:56 Edgar Artis PA is PHCP. jr8 13:56 Goyo Natarajan MD is Attending Physician. jr8 14:26 Patient has correct armband on for positive identification. Bed in low position. Call jr10 light in reach. Side rails up X2. daughter at bedside. 14:26 Patient maintains SpO2 saturation greater than 95% on room air. jr10 14:26 No provider procedures requiring assistance completed. Patient did not have IV access jr10 during this emergency room visit. 14:43 XRAY Hip LEFT 2 view In Process Unspecified. EDMS 15:27 Inserted saline lock: 20 gauge in right hand, using aseptic technique. IV is patent, is jr10 intact, Flushed. Administered Medications: No medications were administered Output: 14:24 Urine: 250ml (Quach); Total: 250ml. jr10 Outcome: 16:40 ER care complete, transfer ordered by . jr8 18:30 Transferred by ground EMS to [facility], Transfer form completed. jr10 18:30 Condition: stable 18:30 Patient's length of stay in the Emergency Department was greater than 2 hours. no orthopedic Patient's length of stay extended due to 19:24 Patient left the ED. jr10 Signatures: Dispatcher [employer] EDND Veronica Munoz mr Roszak, Edgar, PA PA jr8 Leslie House RN RN ll1 Rupa Munoz RN RN jr10
--- NOTE | 2020-05-20 08:17 | EKG ---
Test Date: 2020-05-19 Test Time: 17:00:44 Wellness Specialist: CAR MEASUREMENT RESULTS: Intervals: Rate: 88 AL: 142 QRSD: 84 QT: 406 QTc: 491 [place]: P: 83 AL: 142 QRS: -31 T: 76 INTERPRETIVE STATEMENTS: Sinus rhythm with premature supraventricular complexes with occasional premature ventricular complexes Left axis deviation Prolonged QT Abnormal ECG No previous ECG available for comparison Electronically Signed On 05-20-20 08:16:22 CDT by Bryan Driscoll
[2020-05-21 22:57] VITALS: BP 149/100; O2SAT 95
== END 2020-05-19 19:23 | disposition short-term general hospital (02) ==
LOC: ER 13:30
DX: S72.012A Unspecified intracapsular fracture of left femur, initial encounter for closed fracture (principal); W18.2XXA Fall in (into) shower or empty bathtub, initial encounter; Y93.E1 Activity, personal bathing and showering; Y92.012 Bathroom of single-family (private) house as the place of occurrence of the external cause; Z88.0 Allergy status to penicillin; F17.210 Nicotine dependence, cigarettes, uncomplicated
CPT/HCPCS: 36415; 80048; 85025; 85610; 85730; 93005; 99285